=== PATIENT | male | born 1950 | race African-American/Black ===

== ENCOUNTER 2018-01-27 22:43 | Emergency (ER) | payer OTHER ==
[~2018-01-27] VITALS: Ht 175.3 cm; Wt 68.2 kg
[~2018-01-27 22:43] MED LIST: ASPI81TA39 PO; ATOR40TA28 PO; BUME1TAB17 PO; CARV3 PO; ERGO500014 PO; ISOS10TA16 PO; PHOSLOC PO; POTA8CAP10 PO
[2018-01-27 22:48] VITALS: BP 138/92
== END 2018-01-27 23:18 | disposition left against medical advice (07) ==
LOC: EMS 22:44
DX: R55 Syncope and collapse (principal); I11.0 Hypertensive heart disease with heart failure; I50.9 Heart failure, unspecified; F17.210 Nicotine dependence, cigarettes, uncomplicated; Z79.82 Long term (current) use of aspirin
CPT/HCPCS: 93005; 99285